=== PATIENT | female | born 1945 | race African-American/Black ===

== ENCOUNTER 2016-12-11 17:32 | Inpatient (IN) | payer OTHER ==
--- NOTE | ~2016-12-11 | DS ---
Unit #: [id number] #: [id number] Patient: PTATY DUENAS [id number] [facility]. [place], [place] [address] [id number] I MR#: [id number] NAME: PATTY DUENAS ROOM: 576 Age: 71 Sex: F Admission Date: 12/12/2016 : 1945 Discharge Date: 12/14/2016 Attending Physician: Kennedi Dee M.D. Primary Care Physician: Lana Chappell M.D. DISCHARGE SUMMARY ADMISSION DIAGNOSES 1. Acute urinary tract infection. 2. Right buttock abscess. DISCHARGE DIAGNOSES 1. Acute e-coli urinary tract infection. 2. Right gluteal abscess. 3. Hypertension. 4. Elevated creatinine, likely underlying chronic kidney disease. 5. 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 6. Type 2 diabetes mellitus. 7. Hyperlipidemia. 8. Hypertension. [facility]ULT[facility] in surgical consultation. DIAGNOSTIC DATA LABORATORY: The patient's creatinine is 1.4, sodium 139, potassium 3.6. AST and ALT are within normal limits. The patient's hemoglobin A1c was 12.3. White blood cell count 11.7, hemoglobin 9.0, platelet count 193. Urine culture was positive for e-coli. TSH was 1.99. IMAGING: Repeat chest x-ray did not reveal any acute finding. HOSPITAL COURSE The patient is a 71-year-old patient who was admitted to [facility] with fever. Details are as per admission history and physical. Acute urinary tract infection: The patient was treated with IV antibiotics. She has responded well and is afebrile. Right buttock abscess: The patient underwent incision and drainage in the emergency room. The patient was seen by surgery in consultation, who thought the patient need any further workup for abscess. The patient's leukocytosis is improved. Elevated creatinine: The patient's creatinine is 1.4 now, which means she likely has underlying chronic kidney disease stage 3. Hypertension: Controlled. Unit #: [id number] #: [id number] Patient: PATTY DUENAS Questionable pneumonia: On initial chest x-ray the patient had opacity. Follow-up chest x-ray is negative for any acute findings. Uncontrolled type 2 diabetes mellitus: The patient is noncompliant with her medications. She may need insulin. I advised the patient to discuss with her family doctor as she does not want me to start her on insulin. I advised her to follow up with her primary care physician. Hemoglobin A1c was 12.3. Today the patient is comfortable and is not in acute distress. She wants to go home. DISCHARGE CONDITOIN Stable. ACTIVITY As tolerated. DISCHARGE MEDICATIONS 1. Tylenol 500 mg p.o. t.i.d. p.r.n. 2. Lisinopril 5 mg p.o. daily. 3. Omnicef 300 mg p.o. b.i.d. for 1 week. 4. Claritin 10 mg p.o. daily p.r.n. 5. Norvasc 10 mg p.o. daily. 6. Lipitor 20 mg at nighttime. 7. Enteric coated aspirin 81 mg p.o. daily. 8. Spironolactone 25 mg p.o. daily. 9. Glipizide 10 mg p.o. b.i.d. FOLLOWUP 1. The patient is advised to follow up with primary care physician in one week and have a CBC and BMP done. 2. The patient is advised to have Accu-Cheks morning and evening and call primary care physician if less than 80 or greater than 350. 3. The patient was advised to have home health regarding physical therapy, occupational therapy and wound care regarding gluteal abscess. The plan was discussed in detail with the patient and also with her son, who promised to make sure that she will follow up with her primary care physician. Dictated by... Suzy Dunbar TD: 12/14/2016 11:43 JOB #: [id number] Unit #: [id number] #: [id number] Patient: PATTY DUENAS DISCHARGE SUMMARY Page 1 of 1 X Kennedi Dee MD DISCHARGE SUMMARY
--- NOTE | ~2016-12-11 | CR72 ---
[facility] A Service of [facility] RADIOLOGY TEXT RESULTS PATIENT: PATTY DUENAS LOCATION: [place] [address] : 46 UNIT #: [id number] AGE: [address]: Kennedi Dee MD SEX: F ORDER DR: [id number] [facility] [place] [facility]. [place], [place] [address] [id number] E MR#: [id number] Acc #: [id number] NAME: PATTY DUENAS : 1945 SEX: F STUDY DATE/TIME: 12/11/2016 21:59 UNIT: DYLAN ROOM: STUDY DESCRIPTION: CR Chest Single View Portable Attending Physician: Charan Grant M.D. Ordering Physician: Charan Grant M.D. Primary Care Physician: Lana Chappell M.D. MEDICAL IMAGING REPORT This report is preliminary unless electronic signature is present EXAM Portable chest. INDICATION Fever and cough for the past 2 days. PROCEDURE Frontal view of the chest. COMPARISON 12/27/14 FINDINGS Stable cardiomegaly. There is ill-defined opacity in the medial left lung base. Otherwise, lungs are predominately clear. No pleural fluid or pneumothorax. IMPRESSION Ill-defined opacity in the medial left lung base could represent atelectasis or infiltrate. Dictated by... Jordon Mcmullen M.D. THIS IS AN ELECTRONICALLY VERIFIED REPORT Jordon Mcmullen M.D. at 12/12/2016 10:05 PM REESE/milton TD: 12/11/2016 23:57 JOB #: [id number] MEDICAL IMAGING REPORT [facility] [place] [facility]OLOGY TEXT RESULTS PATIENT: PATTY DUENAS LOCATION: [facility] 576 : 46 UNIT #: [id number] AGE: [address]: Kennedi Dee MD SEX: F ORDER DR: Page 1 of 1 COPY
--- NOTE | ~2016-12-11 | DS ---
Unit #: [id number] #: [id number] Patient: PATTY DUENAS [id number] [address] [place], [place] [address] [id number] I MR#: [id number] NAME: PATTY DUENAS ROOM: [facility] Age: 71 Sex: F Admission Date: 12/12/2016 : 1945 Discharge Date: 12/14/2016 Attending Physician: Kennedi Dee M.D. Primary Care Physician: Lana Pappas DISCHARGE SUMMARY ADDENDUM MEDICATIONS The patient states that she also takes Humulin 70/30 at 60 units subcutaneous b.i.d. at home. She states that her sugars usually run high, but she does not miss her medication. I called and discussed with patient's daughter, Jim, and advised her to go to her primary care physician's next appointment to see if patient's insulin needs to be adjusted because it does not make any sense if patient is taking her insulin regularly and her hemoglobin A1c being so elevated to 12.3. Dictated by... Suzy Dunbar/nnadini TD: 12/14/2016 12:02 JOB #: [id number] DISCHARGE SUMMARY Page 1 of 1 X Kennedi Dee MD X DISCHARGE SUMMARY
--- NOTE | ~2016-12-11 | CR63 ---
[facility] A Service of [facility] RADIOLOGY TEXT RESULTS PATIENT: PATTY DUENAS LOCATION: [facility] 576-01 : 46 UNIT #: [id number] AGE: [address]: Kennedi Dee MD SEX: F ORDER DR: [id number] [facility]. [place], [place] [address] [id number] I MR#: [id number] Acc #: [id number] NAME: PATTY DUENAS : 1945 SEX: F STUDY DATE/TIME: 12/13/2016 12:39 UNIT: [facility] ROOM: [facility] STUDY DESCRIPTION: CR Chest 2 View Attending Physician: Kennedi Dee M.D. Ordering Physician: Kennedi Dee M.D. MEDICAL IMAGING REPORT This report is preliminary unless electronic signature is present EXAM 2 views of the chest COMPARISON December 11, 2016 and December 27, 2014 as well as December 24, 2014. HISTORY 71-year-old female with dyspnea, fever, cough for 2 days. History of hypertension. FINDINGS Exam is limited by apical lordotic positioning of the patient. Cardiomediastinal silhouette is likely within normal limits given these factors. There is hazy attenuation over the left lung base on the frontal view which does not persist on lateral view, most consistent with breast shadow. There are findings suggestive of DISH in the lid-ob-gdtfu thoracic spine. These are grossly stable from 2014. Multilevel anterior osteophyte formation of the cervical spine. No evidence of pneumothorax, pleural effusion or acute airspace disease. IMPRESSION No acute radiographic abnormality of the chest. Dictated by... Glenn Trujillo M.D. THIS IS AN ELECTRONICALLY VERIFIED REPORT Glenn Trujillo M.D. at 12/20/2016 12:28 PM BLM/pcl TD: 12/13/2016 16:41 [facility] A Service of [facility] RADIOLOGY TEXT RESULTS PATIENT: PATTY DUENAS LOCATION: [facility] 576-01 : 46 UNIT #: [id number] AGE: [address]: Kennedi Dee MD SEX: F ORDER DR: JOB #: [id number] MEDICAL IMAGING REPORT Page 1 of 1 COPY
--- NOTE | ~2016-12-11 | CO ---
Unit #: [id number] #: [id number] Patient: PATTY DUENAS [id number] [facility]. [place], [place] [address] [id number] I MR#: [id number] NAME: PATTY DUENAS ROOM: 576 Age: 71 Sex: F Admission Date: 12/12/2016 : 1945 Attending Physician: Kennedi Dee M.D. Primary Care Physician: Lana Chappell M.D. Consultation Date: 12/13/2016 CONSULTATION REPORT CONSULTING PHYSICIAN Dr. Dee. REASON FOR CONSULTATION Right gluteal abscess. HISTORY OF PRESENT ILLNESS The patient is a 71-year-old woman, who presented to the emergency room at [facility] with weakness, headache, and fevers that started 2 days prior to admission. On presentation to the emergency room, she was found to have urinary tract infection, probable pneumonia as well as a right gluteal abscess. She has not had any previous perirectal or gluteal abscesses in the past. This was drained in the emergency room last night. On the morning of consultation, she states that she feels markedly better from this. PAST MEDICAL HISTORY As above. She also has a history of multiple polyps in the past. She has a history of sigmoid adenocarcinoma, which was resected in 2015, diabetes type 2, hypertension, and hyperlipidemia. MEDICATIONS See her MAR. ALLERGIES She is allergic to codeine. SOCIAL HISTORY She denies alcohol or tobacco abuse. She has never smoked. FAMILY HISTORY Noncontributory. REVIEW OF SYSTEMS A 10-point review is performed. This is negative other than what was already listed in the history of present illness. PHYSICAL EXAMINATION GENERAL: She is alert, in no apparent distress. VITAL SIGNS: Temperature 98.6, pulse 98, respirations 18, blood pressure 131/68, and she is 95% saturated on room air. HEENT: Pupils are equal and round. Extraocular motions are intact. NECK: Supple without adenopathy. HEART: Regular rate and rhythm. Unit #: [id number] #: [id number] Patient: PATTY DUENAS LUNGS: Clear to auscultation anteriorly. ABDOMEN: Soft, obese, and benign. EXTREMITIES: Negative clubbing, cyanosis, or edema. Her right gluteal region has an area of induration, about 5 cm in diameter. There is no apparent cellulitis. There is a punctate opening from drainage. In the emergency room, there is no drainage from this with pressure. There is no fluctuance that I can appreciate. She states that it is much less tender in the last night when she came in. NEUROLOGIC: Negative focal sensory or motor deficits. SKIN: Warm and dry. DIAGNOSTIC STUDIES LABORATORY RESULTS: Significant for white blood cell count of 22 on admission, this is down to 15.1 on the morning of consultation. Hemoglobin was 9.5 and platelets 177. Her BUN is 28 and creatinine is 1.6. Sodium 136 and potassium 3.9. ASSESSMENT AND PLAN The patient with right gluteal abscess, which appears to be successfully drained from the emergency room. We will continue antibiotics as ordered. We will follow with you. But, it does not look like she needs any further surgery at this time. Dictated by... Suzy Franco/jayleen TD: 12/13/2016 07:43 JOB #: [id number] CONSULTATION REPORT Page 1 of 1 X Benjie Swan CONSULTATION REPORT
--- NOTE | ~2016-12-11 | HP ---
Unit #: [id number] #: [id number] Patient: PATTY DUENAS [id number] [facility]. [place], [place] [address] [id number] I MR#: [id number] NAME: PATTY DUENAS ROOM: [address] Age: 71 Sex: F Admission Date: 12/11/2016 : 1945 Attending Physician: Kennedi Dee M.D. Primary Care Physician: Lana Pappas HISTORY AND PHYSICAL DIAGNOSES ON ADMISSION 1. Acute UTI. 2. Pneumonia. 3. Right buttocks abscess. HISTORY OF PRESENT ILLNESS This 71-year-old female presented to [facility] with weakness and headache. As per patient, she was in her usual state of health when she developed weakness around 4-5 days ago. Patient stated that she also starting having fever 2 days ago, and her legs were giving out. Because of the fever and increased weakness, her daughter told her to go to the hospital. Therefore, the patient was examined in the ER, and it was decided to admit her in the hospital. Currently patient is lying in bed. She is complaining of weakness, which is generalized and present for a few days. She denies having chest pain, shortness of air or cough, but the patient is complaining of increased urination and pain on urination. She denies sore throat, sinus congestion, skin rash. The patient is also complaining of small right buttocks swelling. The patient also complains of headache, which is much better now. There is no history of recent weight loss or loss of appetite. The rest of the review of systems is negative. PAST MEDICAL HISTORY 1. Patient had a colonoscopy done in May 2016, which revealed multiple polyps. 2. History of sigmoid adenocarcinoma, stage IIIa. Patient underwent sigmoid colon resection in December 2014 and states that she is clear of cancer since then. 3. Type 2 diabetes mellitus. 4. Hypertension. 5. Hyperlipidemia. PAST SURGICAL HISTORY As above. ALLERGIES Codeine. SOCIAL HISTORY The patient is . She denies smoking, drinking or use of illicit drugs. FAMILY HISTORY Unit #: [id number] #: [id number] Patient: PATTY DUENAS Family history is positive for hypertension. PHYSICAL EXAMINATION GENERAL: The patient is lying comfortably in bed, is not in any obvious acute distress. VITAL SIGNS: Vital signs reveal a temperature of 100 degrees. It was 102.3 on arrival to the ER. Respiratory rate is 16 per minute. Pulse is 98 per minute, blood pressure is 138/63, pulse oximetry 97% on room air. HEENT: Examination revealed no conjunctival congestion. Sclera is nonicteric. NECK: Neck is supple. Trachea is central. RESPIRATORY: Examination revealed decreased breath sounds bilaterally. There are no wheezes or crackles. HEART: Regular rate and rhythm. S1, S2. ABDOMEN: Abdomen is soft, nontender. Bowel sounds are present in all 4 quadrants. NEUROLOGIC: The patient is alert to person, place and time. Power is 5/5 bilaterally. Sensations are grossly intact. SKIN: Skin is warm and dry. Patient has small swelling on right buttocks. DIAGNOSTIC STUDIES LABS ON ADMISSION: The patient's creatinine is 1.2, sodium 134, potassium is 3.7. AST and ALT are within normal limits. Lactic acid level was 2.3. WBC is 16.9, hemoglobin is 10, platelet count is 174. Urinalysis revealed innumerable white blood cells, positive for bile. Influenza A and B screen was negative. IMAGING: CT scan of the abdomen and pelvis did not reveal any acute finding. There are supraumbilical hernias containing fat and portions of transverse colon. Chest x-ray revealed ill-defined opacity in the medial left base. Could represent atelectasis or infiltrate. ASSESSMENT This 71-year-old patient presented to the hospital with fever. PLAN 1. Acute UTI. We will treat patient with IV Zosyn, and we will wait for culture. 2. Probable pneumonia. The chest x-ray seems like atelectasis, as the patient clinically does not have any symptoms of pneumonia, but we will repeat the patient's chest x-ray in a day or 2 if clinically warranted. Will continue patient on antibiotics. 3. Right buttocks abscess. Patient is on antibiotics, and we will see if patient needs surgical consultation for drainage. 4. Hypertension. Continue home medications. 5. Type 2 diabetes mellitus. Will continue patient on home medications. 6. Hypertension. Will continue home medications. 7. Hyperlipidemia. Will continue home medications. 8. Will start patient on Lovenox for DVT prophylaxis. 9. Patient is a full code. 10. The plan was discussed in detail with the patient who showed complete understanding. Dictated by Unit #: [id number] #: [id number] Patient: PATTY DUENAS M.D. MB/db TD: 12/12/2016 11:36 JOB #: [id number] CC: Suzy Arredondo HISTORY AND PHYSICAL Page 1 of 1 X Kennedi Dee MD X HISTORY AND PHYSICAL
--- NOTE | ~2016-12-11 | CT4 ---
[facility] A Service of [facility] RADIOLOGY TEXT RESULTS PATIENT: PATTY DUENAS LOCATION: [facility] 576-01 : 46 UNIT #: [id number] AGE: [address]: Kennedi Dee MD SEX: F ORDER DR: [id number] [facility] [address] [facility]. [place], [place] [address] [id number] MR#: [id number] Acc #: [id number] NAME: PATTY DUENAS : 1945 SEX: F STUDY DATE/TIME: 12/11/2016 23:08 UNIT: DYLAN ROOM: STUDY DESCRIPTION: CT Abd and Pelv Wo Cont Attending Physician: Charan Grant M.D. Ordering Physician: Charan Grant M.D. Primary Care Physician: Lana Pappas MEDICAL IMAGING REPORT This report is preliminary unless electronic signature is present EXAM CT abdomen and pelvis without contrast INDICATIONS Lower abdominal pain nausea and fever for the past [address] of the abdomen and pelvis. This CT exam was performed with one or more of the following radiation dose reduction techniques: automatic control, adjustment of mA and/or kV according to patient size, and iterative reconstruction. COMPARISON 12/24/2014 FINDINGS ABDOMEN WITHOUT CONTRAST: Liver, spleen kidneys adrenal glands pancreas and gallbladder show no acute abnormality. Bowel loops are nondilated. Postsurgical change distal sigmoid colon. Supraumbilical hernia contains fat and portions of the transverse colon and measures 7.2 cm. No complicating features. PELVIS WITHOUT CONTRAST: No pelvic mass or fluid. No aggressive appearing bone lesion. IMPRESSION 1. No acute findings. 2. Supraumbilical hernia containing fat and portions of the transverse colon. No complicating features Dictated by... Jordon Mcmullen M.D. [facility] A Service of [facility] RADIOLOGY TEXT RESULTS PATIENT: PATTY DUENAS LOCATION: [facility] [address] : 46 UNIT #: [id number] AGE: [address]: Kennedi Dee MD SEX: F ORDER DR: THIS IS AN ELECTRONICALLY VERIFIED REPORT Jordon Mcmullen M.D. at 12/12/2016 10:06 PM REESE/leoncio TD: 12/12/2016 01:09 JOB #: [id number] MEDICAL IMAGING REPORT Page 1 of 1 COPY
[~2016-12-11 17:32] MED LIST: ALDACTONE25 MG PO; AMLODIPINE BESYL5 MG PO; ASPIRIN81 MG PO; CLARITIN10 M2 PO; FLONASE ALLERG9.9 ML; GLUCOTROL PO; LIPITOR20 MG DOB; LIPITOR20 MG PO; LISINOPRIL-HCTZ1 T21 PO; NORCO 7.5-3251 EACH PO; NOVOLOG7030; XALATAN OP
[2016-12-11 19:49] LABS: INFLUENZA A NEG (NEG); INFLUENZA B NEG (NEG)
[2016-12-11 22:47] LABS: BASOPHIL# 0.1 X10e3 (0-0.3); BASOPHIL% 0.4 % (0-2.5); HEMATOCRIT 36.9 % (35.0-45.0); LYMPHOCYTE# 2.3 X10e3 (1.0-3.5); LYMPHOCYTE% 10.3 % (17.0-45.0); MEAN CELL VOLUME 89.6 FL (83-96); MEAN CORPUSCULAR HEMOGLOBIN 29.2 PG (28-34); MEAN CORPUSCULAR HGB CONC 32.6 g/dL (30-36); MEAN PLATELET VOLUME 7.9 FL (6.5-11.5); MONOCYTE# 1.9 X10e3 (0-1.0); MONOCYTE% 8.8 % (3.0-12.0); NEUTROPHIL# 17.7 X10e3 (1.5-7.1); NEUTROPHIL% 80.5 % (40-75); PLATELET COUNT 211 X10e3 (140-420); RED BLOOD COUNT 4.12 X10e (3.90-5.30); RED CELL DISTRIBUTION WIDTH 13.5 % (11.0-15.5)
[2016-12-11 22:48] LABS: DIFF IND YES
[2016-12-11 22:55] LABS: ALBUMIN SERUM 4.1 g/dL (3.5-5.0); BILIRUBIN, DIRECT 0.2 mg/dL (0.0-0.2); BILIRUBIN,TOTAL 1.2 mg/dL (0.2-2.0); BUN/CREATININE RATIO 17.33; CREATININE SERUM 1.5 mg/dL (0.6-1.4); GLOM FILT RATE Estimated 40.5 mL/min (>60); PROTEIN TOTAL SERUM 8.2 g/dL (6.0-8.3)
[2016-12-11 23:08] LABS: PLATELET ESTIMATE NORMAL (NORMAL)
[2016-12-12 00:54] LABS: URINE SOURCE CLEAN CATCH
[2016-12-12 00:58] LABS: URINE APPEARANCE TURBID; URINE BLOOD 2+ (NEG); URINE COLOR DK YELLOW; URINE GLUCOSE 100 MG/DL (NEG); URINE KETONE TRACE (NEG); URINE LEUKOCYTE ESTERASE 2+ (NEG); URINE NITRATE NEG (NEG); URINE PROTEIN 2+ (NEG); URINE SPECIFIC GRAVITY 1.028 (1.003-1.035)
[2016-12-12 01:01] LABS: CULTURE INDICATED? YES; URINE BACTERIA AUWI 4+ (NEGATIVE); URINE SQUAMOUS EPITHELIAL CELL OCC /[HPF]; UWBCS1 AUWI INNUM (0-5)
[2016-12-12 01:06] LABS: URINE BILIRUBIN POS (NEG)
[2016-12-12] MEDS ORDERED: AMLODIPINE BESY10 MG PO (01:59)
[2016-12-12] MEDS ORDERED: GLIPIZIDE10 MG PO (01:59)
[2016-12-12] MEDS ORDERED: LIPITOR20 MG PO (01:59)
[2016-12-12] MEDS ORDERED: ALDACTONE25 MG PO (02:00)
[2016-12-12] MEDS ORDERED: CLARITIN10 M3 PO (02:00)
[2016-12-12] MEDS ORDERED: ASPIRIN81 M2 PO (02:00)
[2016-12-12] MEDS ORDERED: MAPAP500 MG PO (02:01)
[2016-12-12] MEDS ORDERED: ZESTORETIC 10-1 EAC1 PO (02:02)
[2016-12-12 05:08] LABS: BASOPHIL% 0.1 % (0-2.5); HEMATOCRIT 29.7 % (35.0-45.0); LYMPHOCYTE# 1.3 X10e3 (1.0-3.5); LYMPHOCYTE% 7.4 % (17.0-45.0); MEAN CORPUSCULAR HEMOGLOBIN 29.8 PG (28-34); MEAN CORPUSCULAR HGB CONC 33.8 g/dL (30-36); MEAN PLATELET VOLUME 7.1 FL (6.5-11.5); MONOCYTE# 1.7 X10e3 (0-1.0); MONOCYTE% 9.9 % (3.0-12.0); NEUTROPHIL% 82.6 % (40-75); PLATELET COUNT 174 X10e3 (140-420); RED BLOOD COUNT 3.37 X10e (3.90-5.30); RED CELL DISTRIBUTION WIDTH 13.6 % (11.0-15.5); WHITE BLOOD COUNT 16.9 X10e3 (4.0-10.5)
[2016-12-12 05:09] LABS: DIFF IND NO
[2016-12-12 05:45] LABS: BILIRUBIN,TOTAL 1.1 mg/dL (0.2-2.0); BUN/CREATININE RATIO 20.83; CREATININE SERUM 1.2 mg/dL (0.6-1.4); POTASSIUM 3.7 mmol/L (3.5-5.1); PROTEIN TOTAL SERUM 6.6 g/dL (6.0-8.3)
[2016-12-13 06:06] LABS: HEMATOCRIT 28.1 % (35.0-45.0); HEMOGLOBIN 9.5 gm/dL (12.0-16.0); MEAN CELL VOLUME 88.6 FL (83-96); MEAN CORPUSCULAR HEMOGLOBIN 30.1 PG (28-34); MEAN PLATELET VOLUME 7.8 FL (6.5-11.5); RED BLOOD COUNT 3.17 X10e (3.90-5.30); RED CELL DISTRIBUTION WIDTH 13.6 % (11.0-15.5); WHITE BLOOD COUNT 15.1 X10e3 (4.0-10.5)
[2016-12-13 06:43] LABS: BUN/CREATININE RATIO 17.5; CALCIUM SERUM 8.2 mg/dL (8.4-10.2); CREATININE SERUM 1.6 mg/dL (0.6-1.4); GLOM FILT RATE Estimated 37.5 mL/min (>60); POTASSIUM 3.9 mmol/L (3.5-5.1)
[2016-12-14 02:31] LABS: HEMATOCRIT 26.9 % (35.0-45.0); MEAN CELL VOLUME 88.9 FL (83-96); MEAN CORPUSCULAR HEMOGLOBIN 29.9 PG (28-34); MEAN CORPUSCULAR HGB CONC 33.6 g/dL (30-36); RED BLOOD COUNT 3.02 X10e (3.90-5.30); RED CELL DISTRIBUTION WIDTH 13.7 % (11.0-15.5); WHITE BLOOD COUNT 11.7 X10e3 (4.0-10.5)
[2016-12-14 02:47] LABS: BUN/CREATININE RATIO 26.42; CALCIUM SERUM 7.7 mg/dL (8.4-10.2); CREATININE SERUM 1.4 mg/dL (0.6-1.4); POTASSIUM 3.6 mmol/L (3.5-5.1)
[2016-12-14] MEDS ORDERED: ZESTRIL5 MG PO (12:34)
[2016-12-14] MEDS ORDERED: OMNICEF300 MG PO (12:35)
[2016-12-14] MEDS ORDERED: NOVOLIN 70100 UNITS/ SUBQ (12:36)
== END 2016-12-14 16:43 | disposition home health service (06) | DRG 580 ==
LOC: CED 17:32 → CEDOF 12-12 01:31 → CED 12-12 01:41 → CEDOF 12-12 07:23 → C5C 12-12 20:00
PROVIDERS: Emergency Medicine; Internal Medicine; Surgery
PROC: 0J990ZZ Drainage of Buttock Subcutaneous Tissue and Fascia, Open Approach (ICD-10-PCS; principal; 2016-12-12)
DX: L02.31 Cutaneous abscess of buttock (principal); N39.0 Urinary tract infection, site not specified; E11.22 Type 2 diabetes mellitus with diabetic chronic kidney disease; B96.20 Unspecified Escherichia coli [E. coli] as the cause of diseases classified elsewhere; I12.9 Hypertensive chronic kidney disease with stage 1 through stage 4 chronic kidney disease, or unspecified chronic kidney disease; Z85.038 Personal history of other malignant neoplasm of large intestine; E78.5 Hyperlipidemia, unspecified; Z82.49 Family history of ischemic heart disease and other diseases of the circulatory system; N18.3 Chronic kidney disease, stage 3 (moderate); Z79.84 Long term (current) use of oral hypoglycemic drugs
CPT/HCPCS: 36415; 51701; 71010; 71020; 74176; 80048; 80053; 80076; 80202; 81003; 82947; 83036; 83605; 84443; 85025; 85027; 87040; 87086; 87088; 87186; 87804; 96361; 96365; 99285; J0456; J1650; J1815; J2543; J3370